=== PATIENT | female | born 1960 | race Caucasian/White ===

== ENCOUNTER 2021-11-16 06:25 | Day surgery (SDC) | payer OTHER ==
[~2021-11-16] VITALS: Ht 170.2 cm; Wt 66.0 kg
--- NOTE | ~2021-11-16 | OR ---
[facility] [address], [place] [address] Draft DATE OF OPERATION: 11/16/2021 SURGEON: Jhon Virgen MD PREOPERATIVE DIAGNOSES: 1. Family history of colon cancer (father). 2. History of normal colonoscopy 2013. POSTOPERATIVE DIAGNOSIS: Normal colon to cecum. PROCEDURE: Total colonoscopy to cecum. ANESTHESIA: Intravenous sedation, fentanyl 150 mcg and Versed 7 mg. INDICATION: This 61-year-old white woman is a patient Dr. Mcqueen and well known to me from the past. She underwent colonoscopy in 2013, which was normal. She has family history of colon cancer in her father. Her father was of an advanced age when diagnosed. She is admitted at this time to undergo screening colonoscopy on the basis of her family history. She has no symptoms of bleeding, diarrhea, or constipation. She understands the risk of bleeding, infection, and perforation related to colonoscopy and wished to proceed. FINDINGS: The prep was good. Complete colonoscopy was undertaken of the cecum with intubation of the cecum and good examination throughout. There was no evidence of polyps, diverticular formation, colitis, or cancer. DESCRIPTION OF PROCEDURE: The patient was brought to the endoscopy suite and placed in the lateral decubitus position given intravenous sedation to the point of slurred speech and nystagmus. Digital rectal examination was normal. An Olympus video colonoscope was passed in the rectum and manipulated throughout the colon. Passage beyond the hepatic flexure took a bit of time as well as abdominal wall stabilization and various maneuvers, but ultimately the scope was passed to the cecum and ultimately intubated the cecum itself. The ileocecal valve and appendiceal orifice PATIENT NAME: ISSA MENDOZA OPERATIVE REPORT DATE OF : 62 REPORT #: [id number] PHYSICIAN: JHON VIRGEN MD PCP: CHENCHO MCQUEEN MD REPORT IS CONFIDENTIAL AND NOT TO BE RELEASED WITHOUT AUTHORIZATION [facility] [address] [place] [id number] Draft were normal. Scope was withdrawn from that point and examination throughout showed no sign of abnormality specifically no polyps, diverticular formation, colitis, or cancer. Retroflexed view was normal. The scope was removed and the patient was taken to the recovery room in good condition. CONCLUDING DIAGNOSIS: Normal colon. PLAN: Recommend repeat colonoscopy in 5 years based on current recommendations related to family history in first-degree relative. She certainly should undergo colonoscopy if symptoms develop sooner than that. She will return to the ongoing care of Dr. Mcqueen, otherwise. MD ANA MARÍA Dai/VANIA /[id number] cc: Dr. Mcqueen Copies: ~ PATIENT NAME: ISSA MENDOZA OPERATIVE REPORT DATE OF : 62 REPORT #: [id number] PHYSICIAN: JHON VIRGEN MD PCP: CHENCHO MCQUEEN MD REPORT IS CONFIDENTIAL AND NOT TO BE RELEASED WITHOUT AUTHORIZATION
== END 2021-11-16 11:15 | disposition home or self-care (01) ==
LOC: OPS 06:25 → DS 06:25 → OPS 07:30 → DS 07:30 → OPS 11:15
PROVIDERS: ATTEND Surgery
PROC: 0DJD8ZZ Inspection of Lower Intestinal Tract, Via Natural or Artificial Opening Endoscopic (ICD-10-PCS; principal; 2021-11-16 07:30)
DX: Z12.11 Encounter for screening for malignant neoplasm of colon (principal); Z80.0 Family history of malignant neoplasm of digestive organs
CPT/HCPCS: 99153; G0500; J2250; J2405; J3010; J7121